=== PATIENT | male | born 1990 | race Two or more races ===

== ENCOUNTER 2020-07-23 10:42 | Emergency (ER) | payer OTHER, MEDICAID ==
[~2020-07-23] VITALS: Ht 167.6 cm; Wt 77.6 kg
[2020-07-23] MEDS ORDERED: KETOROLAC TROMETH 60MG/2ML VIAL IM ONE (12:00)
[2020-07-23 14:07] VITALS: BP 126/77
== END 2020-07-23 14:14 | disposition home or self-care (01) ==
LOC: ER 10:42
DX: S46.912A Strain of unspecified muscle, fascia and tendon at shoulder and upper arm level, left arm, initial encounter (principal); V29.9XXA Motorcycle rider (driver) (passenger) injured in unspecified traffic accident, initial encounter; Y93.89 Activity, other specified; Y92.89 Other specified places as the place of occurrence of the external cause; Y99.8 Other external cause status
CPT/HCPCS: 70450; 73030; 96372; 99284; J1885